=== PATIENT | female | born 1985 | race African-American/Black ===

== ENCOUNTER 2022-04-09 16:22 | Emergency (ER) | payer SELFPAY ==
[~2022-04-09] VITALS: Ht 149.9 cm; Wt 67.0 kg
[2022-04-09 16:27] VITALS: BP 122/84
== END 2022-04-09 21:42 | disposition left against medical advice (07) ==
LOC: ER 16:22
DX: Z53.21 Procedure and treatment not carried out due to patient leaving prior to being seen by health care provider (principal)